=== PATIENT | female | born 1975 | race Caucasian/White ===

== ENCOUNTER → 2020-08-23 15:20 | Outpatient (CLI) | payer OTHER, SELFPAY ==
--- NOTE | ~2020-08-23 | MM_ITS ---
EXAMINATION: MM scrn corrine implant BI w eri HISTORY: Screening mammogram TECHNIQUE: Craniocaudal and mediolateral oblique 3-D tomosynthesis images with implant displacement a nd synthetic 2-D images were generated. Craniocaudal and mediolateral oblique views of the breasts wi thout implant displacement were obtained using full field digital mammography. CAD analysis was submi tted and interpreted. COMPARISON: 03/19/2019 bilateral implant digital screening mammogram 01/20/2018 diagnostic bilateral digital mammogram and limited left breast ultrasound 01/22/2017, 12/29/2015 bilateral implant digital screening mammogram examinations BREAST PARENCHYMAL COMPOSITION: There are scattered areas of fibroglandular density. FINDINGS: Status post bilateral augmentation mammoplasty. There is no evidence of suspicious mass, ca lcification, or architectural distortion to suggest malignancy in either breast. There has been no negron spicious interval change. IMPRESSION: 1. No mammographic evidence of malignancy. 2. Recommend routine screening mammography in one year. BI-RADS Category 1: Negative Reviewed, dictated and finalized at location A.
== END ==
PROVIDERS: Visit Provider Student in an Organized Health Care Education/Training Program
DX: Z12.31 Encounter for screening mammogram for malignant neoplasm of breast (principal)
CPT/HCPCS: 77063; 77067

== ENCOUNTER 2021-11-07 11:18 | Emergency (ER) | payer OTHER, SELFPAY ==
[2021-11-07 11:37] VITALS: BP 95/75; PULSE 74; RESP 16; TEMP 36.2; O2SAT 100
--- NOTE | 2021-11-07 13:06 | ED.URI ---
HPI - URI/Sore Throat General Chief Complaint: Upper Respiratory Infection Stated Complaint: Headache,Diarrhea,Sore Throat Time Seen by Provider: 11/07/21 12:57 Source: patient and RN notes reviewed Mode of arrival: ambulatory Limitations: no limitations History of Present Illness HPI Narrative: Patient presents today complaining of 3-day history of headache, diarrhea, sore throat. Dry cough and fatigue started today. Currently rates her headache 06/12 and has been taking Excedrin and Tylenol with mild relief. She has been vaccinated against COVID-19 and had COVID-19 in October 2020. MD elicited complaint: sore throat and other (Headache) Related Data Home Medications Medication Instructions Recorded Confirmed calcium carbonate 600 mg-vitamin 1 tablet PO DAILY 09/17/19 D3 20 mcg (800 unit) tablet levonorgestrel 20 mcg/24 hours (7 1 device I-UTERINE ONCE 09/17/19 yrs) 52 mg intrauterine device multivit and minerals-ferrous 15 ml PO DAILY 09/17/19 gluconate 9 mg iron/15 mL oral liquid topiramate 25 mg tablet 25 mg PO DAILY 09/17/19 Allergies Allergy/AdvReac Type Severity Reaction Status Date / Time hydrocortisone Allergy Unknown Unknown Verified 06/21/20 13:07 No Known Allergies Allergy Verified 06/30/15 11:35 Review of Systems Review of Systems: CONSTITUTIONAL: Denies body aches, fever, chills, or sweats.+ Fatigue EYES: Denies visual changes, redness, or discharge. ENT: Denies rhinorrhea, congestion, or otalgia.+ Sore throat CARDIOVASCULAR: Denies chest pain, palpitations, or edema. RESPIRATORY: Denies dyspnea.+ Cough GASTROINTESTINAL: Denies abdominal pain, nausea, vomiting. + Diarrhea GENITOURINARY: Denies dysuria or hematuria. SKIN: Denies rash, itching, or wounds. MUSCULOSKELETAL: Denies back pain, joint pain, or myalgia. NEUROLOGIC: Denies numbness, tingling, or weakness+ headache. PSYCH: Denies depression or anxiety. [facility] Past Medical History Medical History (Updated 11/07/21 @ 13:09 by Santa Castillo, TELLO, ) IUD surveillance Migraines Surgical History Surgical History H/O rotator cuff surgery History of breast augmentation History of tonsillectomy and adenoidectomy [place] teeth removed Family History Family History Grandparent Hypertension Cerebrovascular accident Family history of malignant neoplasm of breast Myocardial infarction Social History Social History Smoking status: Never smoker Second hand tobacco smoke exposure: No Alcohol intake: current Comments At time of signature, I have reviewed and agree with nursing past medical, surgical, social and family history unless otherwise noted. Please see nursing chart for further information. There is no relevant family history pertinent to the presenting complaint Exam Narrative: GENERAL: Ill-appearing, well-nourished, and in no acute distress. HEAD: Normocephalic, atraumatic. EYES: EOMI. No redness or drainage. Conjunctivae normal. ENT: Mucous membranes pink and moist. Nares clear. No rhinorrhea. TMs normal bilaterally. Throat normal. Uvula midline. NECK: Normal AROM. Supple. No lymphadenopathy. CHEST: No respiratory distress. Clear to auscultation. HEART: Regular rate and rhythm. No murmur appreciated. Normal peripheral pulses. EXTREMITIES: Normal range of motion. No edema. SKIN: Warm, dry, no rash. Capillary refill normal. Normal skin turgor. NEURO: No focal deficits. Alert and oriented x3. Gait steady. PSYCH: Normal affect. No signs of depression or anxiety. Course Course Level of Care: Express Care Visit Vital Signs Vital signs: Vital Signs Temperature 97.2 F L 11/07/21 11:37 Pulse Rate 74 11/07/21 11:37 Respiratory Rate 16 11/07/21 11:37 Blood Pressure 95/75 L 11/07/21 11:37 Pulse Oximetr
== END 2021-11-07 13:14 | disposition home or self-care (01) ==
PROVIDERS: Emergency Provider Nurse Practitioner
DX: U07.1 COVID-19 (principal)
CPT/HCPCS: 87426; 87804; 99213; C9803; G0463

== ENCOUNTER → 2022-01-24 16:16 | Outpatient (CLI) | payer OTHER, SELFPAY ==
--- NOTE | ~2022-01-24 | MM_ITS ---
EXAMINATION: MM scrn corrine implant BI w eri HISTORY: Screening mammogram TECHNIQUE: Craniocaudal and mediolateral oblique 3-D tomosynthesis images with implant displacement a nd synthetic 2-D images were generated. Craniocaudal and mediolateral oblique views of the breasts wi thout implant displacement were obtained using full field digital mammography. CAD analysis was submi tted and interpreted. COMPARISON: Comparison to multiple prior studies sequentially, with oldest reviewed study dated 07/2015. BREAST PARENCHYMAL COMPOSITION: There are scattered areas of fibroglandular density. FINDINGS: There are bilateral subpectoral silicone implants. There is no evidence of suspicious mass, calcification, or architectural distortion to suggest malignancy in either breast. There has been no suspicious interval change. IMPRESSION: 1. No mammographic evidence of malignancy. 2. Recommend routine screening mammography in one year. BI-RADS Category 1: Negative Reviewed, dictated and finalized at location A.
== END ==
PROVIDERS: Visit Provider Student in an Organized Health Care Education/Training Program
DX: Z12.31 Encounter for screening mammogram for malignant neoplasm of breast (principal)
CPT/HCPCS: 77063; 77067

== ENCOUNTER → 2023-03-13 15:58 | Outpatient (CLI) | payer OTHER, SELFPAY ==
--- NOTE | ~2023-03-13 | MM_ITS ---
EXAMINATION: MM scrn corrine implant BI w eri HISTORY: Screening mammogram TECHNIQUE: Craniocaudal and mediolateral oblique 3-D tomosynthesis images with implant displacement a nd synthetic 2-D images were generated. Craniocaudal and mediolateral oblique views of the breasts wi thout implant displacement were obtained using full field digital mammography. CAD analysis was submi tted and interpreted. COMPARISON: 01/24/2022, 08/23/2020, 03/19/2019 BREAST PARENCHYMAL COMPOSITION: There are scattered areas of fibroglandular density. FINDINGS: RIGHT BREAST: An asymmetry is present in the upper breast approximately 6 cm from the nipple on the i mplant displaced mediolateral oblique view. LEFT BREAST: There is no evidence of suspicious mass, calcification, or architectural distortion to s uggest malignancy. There has been no significant interval change. IMPRESSION: 1. Right breast asymmetry. 2. Additional mammographic views and possible breast ultrasound are recommended. BI-RADS Category 0: Incomplete: Needs additional imaging evaluation. Reviewed, dictated and finalized at location A. IMPRESSION: 1. Right breast asymmetry. 2. Additional mammographic views and possible breast ultrasound are recommended . BI-RADS Category 0: Incomplete: Needs additional imaging evaluation.
== END ==
PROVIDERS: PCP Registered Nurse; Visit Provider Registered Nurse
DX: Z12.31 Encounter for screening mammogram for malignant neoplasm of breast (principal); R92.8 Other abnormal and inconclusive findings on diagnostic imaging of breast
CPT/HCPCS: 77063; 77067

== ENCOUNTER 2023-03-20 08:45 | Outpatient (CLI) | payer OTHER, SELFPAY ==
--- NOTE | ~2023-03-20 | MMUS_ITS ---
EXAMINATION: MM diag corrine implant RT w eri, US breast RT limited HISTORY: Right breast asymmetry on screening mammogram TECHNIQUE: Spot compression 3-D tomosynthesis images with implant displacement of the right breast we re performed and synthetic 2-D images were generated. Mediolateral oblique view of the right breast without implant displacement was obtained using full field digital mammography. CAD analysis was subm itted and interpreted. High resolution limited right breast ultrasound was performed. COMPARISON: 03/13/2023, 01/24/2022, 08/23/2020 FINDINGS: MAMMOGRAPHIC FINDINGS: A focal asymmetry is present in the upper outer quadrant of the breast at the 11:00 location, 6 cm fr om the nipple. There are punctate associated calcifications. ULTRASOUND: There is a 7 mm x 4 mm hypoechoic mass with indistinct margins, no posterior features and no internal vascularity at the 12:00 location, 6 cm from the nipple. IMPRESSION: 1. Indeterminate right breast mass. 2. Ultrasound-guided biopsy is recommended. BI-RADS category 4, suspicious findings. Reviewed, dictated and finalized at location A. IMPRESSION: 1. Indeterminate right breast mass. 2. Ultrasound-guided biopsy is recommended. BI-RADS category 4, suspicious findings.
== END 2023-03-20 08:46 | disposition home or self-care (01) ==
LOC: CHSIMG 08:48
PROVIDERS: PCP Internal Medicine; Visit Provider Registered Nurse
DX: R92.8 Other abnormal and inconclusive findings on diagnostic imaging of breast (principal)
CPT/HCPCS: 76642; 77061; 77065; G0279

== ENCOUNTER 2023-04-15 12:31 | Outpatient (CLI) | payer OTHER, SELFPAY ==
--- NOTE | ~2023-04-15 | US_ITS ---
US breast RT limited DATE: 04/15/2023 13:29 INDICATION: Patient presented for ultrasound-guided breast biopsy of 12:00 lesion 6 cm from nipple TECHNIQUE: Real-time imaging and color flow imaging and 12:00. 6 cm from nipple COMPARISON: 03/13/2023 bilateral implant screening mammogram 03/20/2020 diagnostic right mammogram and limited right breast ultrasound FINDINGS: The area in question at 12:00 6 cm from the nipple does not appear suspicious on the curren t examination, without suspicious internal vascularity or suspicious shadowing. 6 month diagnostic right mammogram and right targeted breast ultrasound follow-up are recommended. IMPRESSION: BI-RADS Category 3: Probably benign Recommendation: 6 month diagnostic right mammogram and right breast ultrasound follow-up Reviewed, dictated and finalized at Location [facility]. Reviewed, dictated and finalized at location A.
== END 2023-04-15 12:32 | disposition home or self-care (01) ==
PROVIDERS: PCP Internal Medicine; Visit Provider Surgery
DX: R92.8 Other abnormal and inconclusive findings on diagnostic imaging of breast (principal)
CPT/HCPCS: 76642

== ENCOUNTER 2023-05-12 06:50 | Day surgery (SDC) | payer OTHER, SELFPAY ==
[2023-03-25 08:08] VITALS: BMI 26.5
[2023-04-29 10:05] VITALS: BMI 26.4
--- NOTE | 2023-05-09 12:51 | WPDANESEPPF ---
Anes - Initial Pre Proc Eval Procedure: Operation Date: 05/12/23 08:30 Proposed Procedures p Screening Colonoscopy - Jose Navarro MD Date/Time: 05/09/23 12:51 Surgeon: Jose Navarro MD Pre Op Diagnosis: Neoplasm Screening Patient Data Age: 47 Gender: F Height: 1.65 m Weight: 72 kg Allergies Allergy/AdvReac Type Severity Reaction Status Date / Time hydrocortisone Allergy Unknown Unknown Verified 05/12/23 07:07 Home Medications Medication Instructions Recorded Confirmed Type calcium carbonate 600 mg-vitamin 1 tablet PO DAILY 09/17/19 05/12/23 History D3 20 mcg (800 unit) tablet (Caltrate with Vitamin D3) levonorgestrel 21 mcg/24 hours (8 1 device intrauterine ONCE 09/17/19 05/12/23 History yrs) 52 mg intrauterine device (Mirena) multivit and minerals-ferrous 15 ml PO DAILY 09/17/19 05/12/23 History gluconate 9 mg iron/15 mL oral liquid (multivitamin with minerals) topiramate 25 mg tablet (Topamax) 25 mg PO BID #180 tabs 05/13/22 05/12/23 Rx Patient hx anesthesia problems: none Family hx anesthesia problems: none Results Review: All pre-operative results and documents have been reviewed as part of the pre-operative evaluation. [facility] Past Medical History Medical History (Updated 05/09/23 @ 12:52 by Germain Medrano DO) IUD surveillance Mass of lower inner quadrant of left breast Migraines Seizure x1 during KLEVER (stress urinary incontinence, female) Vaginal dryness Surgical History Surgical History H/O rotator cuff surgery History of breast augmentation History of tonsillectomy and adenoidectomy [place] teeth removed Family History Family History Grandparent Hypertension Cerebrovascular accident Family history of malignant neoplasm of breast Myocardial infarction Social History Social History (Updated 12/27/22 @ 15:36 by Flor Walsh MA) Smoking status: Never smoker Second hand tobacco smoke exposure: No Alcohol intake: current Drinks per week: 2 Substance use: never Substance use type: does not use Lack of Transportation: No Lack of Food: Never True Current Housing: I Have Housing Concerned About Future Housing: No Difficulty Paying Gas/Electric Bills: No Difficulty Paying for Meds: No Currently Unemployed: No Education: Bachelor's Degree Living arrangements: with family Occupation/Education: occupation Gender identity (if verbalized by the patient): Female Sexual Orientation (if Verbalized by the Patient): Straight or Heterosexual Spiritual care concerns: No Anes - Eval Final PreProcedure Day of Procedure 05/09/23 12:51 Patient weight: overweight Heart: regular rate and rhythm Lungs: clear to auscultation Airway: Mallampati scale class II Neurological: alert and oriented Last oral intake: >/= 8 hours ASA classification: II Emergent: no Anesthetic plan: proceed Anesthesia type and monitoring: general GIVS and standard monitoring Results Review: All pre-operative results and documents have been reviewed as part of the pre-operative evaluation. Informed Consent: The patient's anesthetic plan and its attendant risks and benefits were discussed with the patient/family/POA. Questions were solicited and answers provided to the satisfaction of the patient/family/POA.
[2023-05-12 07:11] VITALS: BP 96/73; PULSE 84; RESP 14; TEMP 36.9; O2SAT 100
[2023-05-12] MEDS: LACTATED RINGERS 1,000 ML 150 ML IV CONT (07:22)
--- NOTE | 2023-05-12 08:33 | PM.HPGS ---
History of Present Illness History of Present Illness Consent: Risks, benefits, and alternatives have been discussed and questions answered. Patient agrees to proceed with procedure. Chief complaint: Neoplasm Screening Narrative: Angi Herzog is a 47 year old female here for first screening colonoscopy Review of Systems Constitutional: Constitutional: Denies headache(s) and Denies weakness Eyes: Eyes: Denies blurry vision ENT: Reports Normal hearing present, Denies headache(s) and Denies neck pain Cardiovascular: Cardiovascular: Denies chest pain and Denies dyspnea Respiratory: Respiratory: Denies dyspnea Gastrointestinal: Gastrointestinal: Reports no additional gastrointestinal complaints Genitourinary: Genitourinary: Denies dysuria Musculoskeletal: Musculoskeletal: Denies neck pain Integumentary/Breasts: Skin/Breast: Denies dry skin Neurologic: Reports Normal hearing present, Denies headache(s) and Denies weakness Psychiatric: Psychiatric: Denies anxiety Endocrine: Endocrine: Denies change in body appearance Hematologic/Lymphatic: Hematologic/Lymphatic: Denies easy bleeding Allergic/Immunologic: Allergic/Immunologic: Denies urticaria PMF Past Medical History Medical History (Updated 05/12/23 @ 08:33 by Jose Navarro MD) Colon cancer screening IUD surveillance Mass of lower inner quadrant of left breast Migraines Seizure x1 during KLEVER (stress urinary incontinence, female) Vaginal dryness Surgical History Surgical History H/O rotator cuff surgery History of breast augmentation History of tonsillectomy and adenoidectomy [place] teeth removed Family History Family History Grandparent Hypertension Cerebrovascular accident Family history of malignant neoplasm of breast Myocardial infarction Social History Social History (Updated 12/27/22 @ 15:36 by Flor Walsh MA) Smoking status: Never smoker Second hand tobacco smoke exposure: No Alcohol intake: current Drinks per week: 2 Substance use: never Substance use type: does not use Lack of Transportation: No Lack of Food: Never True Current Housing: I Have Housing Concerned About Future Housing: No Difficulty Paying Gas/Electric Bills: No Difficulty Paying for Meds: No Currently Unemployed: No Education: Bachelor's Degree Living arrangements: with family Occupation/Education: occupation Gender identity (if verbalized by the patient): Female Sexual Orientation (if Verbalized by the Patient): Straight or Heterosexual Spiritual care concerns: No Meds Home Medications and Allergies Home Medications Medication Instructions Recorded Confirmed Type calcium carbonate 600 mg-vitamin 1 tablet PO DAILY 09/17/19 05/12/23 History D3 20 mcg (800 unit) tablet (Caltrate with Vitamin D3) levonorgestrel 21 mcg/24 hours (8 1 device intrauterine ONCE 09/17/19 05/12/23 History yrs) 52 mg intrauterine device (Mirena) multivit and minerals-ferrous 15 ml PO DAILY 09/17/19 05/12/23 History gluconate 9 mg iron/15 mL oral liquid (multivitamin with minerals) topiramate 25 mg tablet (Topamax) 25 mg PO BID #180 tabs 05/13/22 05/12/23 Rx Allergies Allergy/AdvReac Type Severity Reaction Status Date / Time hydrocortisone Allergy Unknown Unknown Verified 05/12/23 07:07 Vital Signs Vital Signs - 24 hr 05/12/23 07:11 Temperature 98.5 F Pulse Rate 84 Respiratory Rate 14 Blood Pressure 96/73 L Pulse Oximetry 100 Oxygen Delivery Room Air Exam Const: General: comfortable and no acute distress HENMT: Face/Nose/Sinus: Normal nares present Eyes: General: appearance normal, both eyes and all related structures Neck: Neck: no JVD Resp: Auscultation: clear to auscultation bilaterally Cardio: Rate: regular rate Rhythm: regular r
[2023-05-12 08:51] VITALS: BP 95/71; PULSE 69; RESP 16; O2SAT 100
[2023-05-12 09:01] VITALS: BP 97/70; PULSE 66; RESP 16; O2SAT 100
[2023-05-12 09:11] VITALS: BP 101/68; PULSE 65; RESP 20; O2SAT 100
--- NOTE | 2023-05-12 11:12 | WPDANESPN ---
Anes - Prog Note Post-Op Date/Time: 05/12/23 11:12 Cardiovascular status: normal Respiratory status: normal Airway patency: baseline Mental status: baseline Post-Op hydration status: normal Vital Signs: Last Vital Signs Temp 36.9 C 05/12/23 07:11 Pulse 65 05/12/23 09:11 Resp 20 05/12/23 09:11 BP 101/68 05/12/23 09:11 Pulse Ox 100 05/12/23 09:11 O2 Del Method Room Air 05/12/23 09:11 Pain Score (VAS): 0 I/O: Intake & Output 05/11/23 05/12/23 05/12/23 23:59 07:59 15:59 Intake Total 650 Balance 650 Post-procedural complaints: none Patient Feedback: Patient satisfied with anesthetic care. Other Findings: Patient vital signs back to baseline. Patient denies nausea and vomiting. Patient's pain under control. Patient OK for discharge.
== END 2023-05-12 09:26 | disposition home or self-care (01) ==
PROVIDERS: PCP Internal Medicine; Visit Provider Internal Medicine Gastroenterology
PROC: 0DJD8ZZ Inspection of Lower Intestinal Tract, Via Natural or Artificial Opening Endoscopic (ICD-10-PCS; CPT 45378; principal; 2023-05-12 08:30)
DX: Z12.11 Encounter for screening for malignant neoplasm of colon (principal)
CPT/HCPCS: 45380

== ENCOUNTER 2023-05-12 09:00 | Outpatient (NON) | payer OTHER, SELFPAY | END 2023-05-12 09:01 | disposition home or self-care (01) | LOC: ANHLAB 05-13 08:10 | PROVIDERS: PCP Family Medicine; Visit Provider Internal Medicine Gastroenterology | DX: Z12.11 Encounter for screening for malignant neoplasm of colon (principal) | CPT/HCPCS: 88305 ==

== ENCOUNTER → 2024-01-01 09:15 | Outpatient (CLI) | payer OTHER, SELFPAY ==
--- NOTE | ~2024-01-01 | MMUS_ITS ---
EXAMINATION: MM diag corrine implant RT w eri, US breast RT limited HISTORY: Follow-up right breast mass TECHNIQUE: Additional 3-D tomosynthesis images of the right breast were performed and synthetic 2-D i mages were generated. CAD analysis was submitted and interpreted. High resolution Limited right breas t ultrasound was performed. COMPARISON: Comparison to multiple prior studies sequentially, with oldest reviewed study dated 01/28. BREAST PARENCHYMAL COMPOSITION: Not dense: There are scattered areas of fibroglandular density. FINDINGS: MAMMOGRAPHIC FINDINGS: There is a right breast implant. There is a focal asymmetry superiorly in the right breast on MLO vie w. This is stable dating back to 01/24/2022. ULTRASOUND: Limited right breast ultrasound: At 12:00, 6 cm from the nipple there is an oval parallel oriented hy poechoic 6 mm mass along the margin of the breast implant without internal vascularity or posterior f eatures. No significant interval change compared with 03/20/2023. IMPRESSION: 1. Stable likely benign right breast mass at 12:00, 6 cm from the nipple. 2. Recommend 6 month follow-up Limited right breast ultrasound. BI-RADS category 3, probably benign findings. Reviewed, dictated and finalized at location A. [employer] IMPRESSION: 1. Stable likely benign right breast mass at 12:00, 6 cm from the nipple. 2. Recommend 6 month follow-up Limited right breast ultrasound. BI-RADS category 3, probably benign findings.
== END ==
PROVIDERS: PCP Obstetrics & Gynecology; Visit Provider Obstetrics & Gynecology
DX: R92.8 Other abnormal and inconclusive findings on diagnostic imaging of breast (principal)
CPT/HCPCS: 76642; 77061; 77065; G0279